=== PATIENT | male | born 1945 | race Caucasian/White ===

== ENCOUNTER 2019-11-05 13:34 | Emergency (ER) | payer OTHER ==
--- NOTE | 2019-11-05 14:38 | EDM.PDOC ---
ED HPI GENERAL MEDICAL PROBLEM - General Chief Complaint: General Stated Complaint: "blood pressure problem", right knee pain Time Seen by Provider: 11/05/19 14:03 Source of Information: Reports: Patient History Limitations: Reports: No Limitations - History of Present Illness INITIAL COMMENTS - FREE TEXT/NARRATIVE: Dave is a 74 yo male who presents to the ED via private vehicle stating he needs to see a doctor for multiple complaints. States he is new to the area as he recently moved here and admits he [facility]. He states [facility] today and they wanted him to come in to have his blood pressure checked. He typically will get a headache when his blood pressure is elevated but he currently doesn't have one. Denies any chest pain or shortness of breath. He also states he fell about 3-4 weeks ago landing on his right knee and ended up having an x-ray done. States he has a knee replacement in the past and everything looked great. He states it continues to hurt on the inside of his knee but hasn't noticed any instability or laxity. Pain is currently a 6 out of 10 which has been fairly constant. States he is taking Tylenol for it as he doesn't take NSAIDs with history of stomach ulcers. Denies any worsening of symptoms today. Has hardware in the medial part of his right ankle that he feels needs to come out as it is tenting his skin. Right knee Pain Score (Numeric/FACES): 6 - Related Data Allergies Allergy/AdvReac Type Severity Reaction Status Date / Time No Known Allergies Allergy Verified 11/05/19 13:49 Home Meds: Home Meds . [Unable to Verify Home Med List] 11/05/19 [History] Past Medical History Cardiovascular History: Reports: Hypertension Gastrointestinal History: Reports: GI Bleed Genitourinary History: Reports: Prostate Disorder Psychiatric History: Reports: Depression - Past Surgical History Other Musculoskeletal Surgeries/Procedures:: back surgery x4, neck surgery, ankle surgery. history of broken ribs. surgery on both knees. Social & Family History - Tobacco Use Smoking Status *Q: Former Smoker Used Tobacco, but Quit: Yes Month/Year Tobacco Last Used: 1981 ED ROS GENERAL - Review of Systems Review Of Systems: Comprehensive ROS is negative, except as noted in HPI. ED EXAM, GENERAL - Physical Exam Exam: See Below Exam Limited By: No Limitations General Appearance: Alert, WD/WN, No Apparent Distress Throat/Mouth: Normal Voice, No Airway Compromise Head: Atraumatic, Normocephalic Neck: Normal Inspection Respiratory/Chest: No Respiratory Distress, Lungs Clear, Normal Breath Sounds Cardiovascular: Regular Rate, Rhythm, No Edema, No Murmur Extremities: Normal Inspection, Normal Range of Motion, Other (tenderness to medial aspect of right knee. Negative valgus and varus stretch.; No warmth to knee. Right ankle medial aspect does show hardware tenting. ). No: Pedal Edema , Joint Swelling, Mottled, Redness Neurological: Alert, Oriented, No Motor/Sensory Deficits Psychiatric: Normal Affect, Normal Mood Skin Exam: Warm, Dry, Intact, Normal Color, No Rash Course - Vital Signs Last Recorded V/S: Last Vital Signs Temp 98 F 11/05/19 13:41 Pulse 69 11/05/19 14:09 Resp 20 11/05/19 13:41 BP 137/75 11/05/19 14:09 Pulse Ox 95 11/05/19 13:41 - Orders/Labs/Meds Orders: Active Orders 24 hr Category Date Time Status BMP [BASIC METABOLIC PANEL,BMP] [CHEM] Stat Lab 11/05/19 13:59 Ordered CBC WITH AUTO DIFF [HEME] Stat Lab 11/05/19 13:59 Ordered Departure - Departure Time of Disposition: 14:41 Disposition: Home, Self-Care 01 Clinical Impression: Right medial knee pain, Vertigo Hypertension Qualifiers: Hypertension type: essential hypertension Qualified Code(s): I10 - Essential ( primary) hypertension Pain from implanted hardware Qualifiers: Encounter type: initial encounter Qualified Code(s): T85.848A - Pain due to other internal prosthetic devices, implants and grafts, initial encounter - Discharge Information Referrals: PCP,None [Primary Care Provider] - Additional Instructions: 1) [facility] with [facility] tomorrow as discussed with [facility]. 2) Blood pressure was normotensive today with repeat blood pressure 3) Recommend discussing physical therapy in regards to knee with [facility] tomorrow as well 4) Likely will need hardware removed which also recommend discussing with [facility] 5) Return to ED if any chest pain, shortness of breath, palpitations, uncontrolled blood pressure, etc... Sepsis Event Note - Evaluation Sepsis Screening Result: No Definite Risk - Focused Exam Vital Signs: Vital Signs Temp Pulse Resp BP Pulse Ox 11/05/19 14:09 69 137/75 11/05/19 13:41 98 F 69 20 137/97 H 95 Date Exam was Performed: 11/05/19 Time Exam was Performed: 14:32 - Problem List & Annotations (1) Hypertension SNOMED Code(s): 83323201 Code(s): I10 - ESSENTIAL (PRIMARY) HYPERTENSION Status: Acute Current Visit: Yes Qualifiers: Hypertension type: essential hypertension Qualified Code(s): I10 - Essential (primary) hypertension (2) Pain from implanted hardware SNOMED Code(s): 80103764, 50398343 Code(s): T85.848A - PAIN DUE TO OTHER INTERNAL PROSTH DEV/GRFT, INIT Status : Acute Current Visit: Yes Qualifiers: Encounter type: initial encounter Qualified Code(s): T85.848A - Pain due to other internal prosthetic devices, implants and grafts, initial encounter (3) Right medial knee pain SNOMED Code(s): 26546601 Code(s): M25.561 - PAIN IN RIGHT KNEE Status: Acute Current Visit: Yes (4) Vertigo SNOMED Code(s): 104673461 Code(s): R42 - DIZZINESS AND GIDDINESS Status: Acute Current Visit: Yes - My Orders Last 24 Hours: My Active Orders 11/05/19 13:59 BMP [BASIC METABOLIC PANEL,BMP] [CHEM] Stat CBC WITH AUTO DIFF [HEME] Stat - Assessment/Plan Last 24 Hours: My Active Orders 11/05/19 13:59 BMP [BASIC METABOLIC PANEL,BMP] [CHEM] Stat CBC WITH AUTO DIFF [HEME] Stat Plan: Discussed with [facility] he needs to review all [facility] concerns with the [facility]. Blood pressure repeated and normotensive. Overall, I do not feel there is anything else we can do from ED stand point. I did discuss having labs drawn today which he declined and wants to wait till tomorrow.
== END 2019-11-05 14:51 | disposition home or self-care (01) ==
LOC: CC.ED 13:34
DX: M25.561 Pain in right knee (principal); T84.84XA Pain due to internal orthopedic prosthetic devices, implants and grafts, initial encounter; R42 Dizziness and giddiness; I10 Essential (primary) hypertension; Z87.891 Personal history of nicotine dependence; Y79.2 Prosthetic and other implants, materials and accessory orthopedic devices associated with adverse incidents
CPT/HCPCS: 99283

== ENCOUNTER 2019-11-11 01:15 | Emergency (ER) | payer OTHER ==
--- NOTE | 2019-11-11 01:45 | EDM.PDOC ---
ED HPI GENERAL MEDICAL PROBLEM - General Chief Complaint: Back Pain or Injury Stated Complaint: back pain Time Seen by Provider: 11/11/19 01:35 Source of Information: Reports: Patient, EMS History Limitations: Reports: No Limitations - History of Present Illness INITIAL COMMENTS - FREE TEXT/NARRATIVE: Patient to the emergency department by EMS where he advised he was trying to open up soup earlier today and slipped and fell on the floor landing on his buttocks. The patient advises that he does have pain to his lower back. The patient does have a history of chronic lower back pain as well as advising that he has had several lumbar spine surgeries. The patient also advises that over the last 3 days he has been drinking pretty heavily and the alcohol increased tonight with the [employer] Bowl. The patient denies any mid back or upper back pain he denies any neck pain he denies hitting his head there is no loss of consciousness he denies any hip or pelvis pain he denies any upper or lower extremity pain he denies any other symptoms. The patient denies that he has been voiding since the accident this late evening. The patient has been up and ambulating without any problem as well. Onset: Today Duration: Hour(s): Location: Reports: Back Quality: Reports: Ache Severity: Moderate Improves with: Reports: None Worsens with: Reports: Movement Associated Symptoms: Reports: No Other Symptoms. Denies: Chest Pain, Nausea/ Vomiting, Shortness of Breath, Weakness Treatments CHEMISTRY QUALITY CONTROL TECHNICIAN: Reports: Acetaminophen lower back Pain Score (Numeric/FACES): 8 - Related Data Allergies Allergy/AdvReac Type Severity Reaction Status Date / Time No Known Allergies Allergy Verified 11/11/19 01:28 Home Meds: Home Meds Allopurinol [Zyloprim] 100 mg PO DAILY 11/11/19 [History] Aspirin [Halfprin] 81 mg PO DAILY 11/11/19 [History] Cetirizine HCl 10 mg PO DAILY 11/11/19 [History] Cyanocobalamin (Vitamin B-12) [B-12] 1,000 mcg PO DAILY 11/11/19 [History] Escitalopram Oxalate 20 mg PO DAILY 11/11/19 [History] Finasteride 5 mg PO DAILY 11/11/19 [History] Magnesium Oxide 420 mg PO BID 11/11/19 [History] Pantoprazole Sodium 40 mg PO DAILY 11/11/19 [History] Propranolol HCl [Propranolol] 5 mg PO BID 11/11/19 [History] Pyridoxine HCl [Vitamin B-6] 50 mg PO DAILY 11/11/19 [History] Thiamine HCl [B-1] 100 mg PO DAILY 11/11/19 [History] buPROPion HCL [Bupropion HCl Sr] 100 mg PO BID 11/11/19 [History] methocarbamoL [Robaxin] 500 mg PO TID 10 Days #30 tab 11/11/19 [Rx] traZODone HCl [Trazodone HCl] 150 mg PO BEDTIME 11/11/19 [History] Past Medical History Cardiovascular History: Reports: Hypertension Gastrointestinal History: Reports: GI Bleed Genitourinary History: Reports: Prostate Disorder Psychiatric History: Reports: Depression - Past Surgical History Other Musculoskeletal Surgeries/Procedures:: back surgery x4, neck surgery, ankle surgery. history of broken ribs. surgery on both knees. Social & Family History - Tobacco Use Smoking Status *Q: Never Smoker - Alcohol Use Days Per Week of Alcohol Use: 3 Number of Drinks Per Day: 6 Total Drinks Per Week: 18 Date of Last Drink: 11/11/19 Time of Last Drink: 00:00 - Recreational Drug Use Recreational Drug Use: No ED ROS GENERAL - Review of Systems Review Of Systems: See Below Constitutional: Reports: No Symptoms HEENT: Reports: No Symptoms Respiratory: Reports: No Symptoms. Denies: Shortness of Breath Cardiovascular: Reports: No Symptoms. Denies: Chest Pain GI/Abdominal: Reports: No Symptoms. Denies: Abdominal Pain, Nausea, Vomiting : Reports: No Symptoms Musculoskeletal: Reports: Back Pain. Denies: Neck Pain Skin: Reports: No Symptoms. Denies: Bruising, Rash, Erythema Neurological: Reports: No Symptoms, Other (The patient denies any numbness or tingling in back however he does have chronic numbness and tingling in his lower extremities secondary to neuropathy). Denies: Numbness, Tingling, Trouble Speaking, Difficulty Walking, Gait Disturbance Psychiatric: Reports: No Symptoms ED EXAM,LOWER BACK PAIN/INJURY - Physical Exam Exam: See Below Exam Limited By: No Limitations General Appearance: Alert, WD/WN, No Apparent Distress Ears: Normal External Exam Nose: Normal Inspection Throat/Mouth: Normal Inspection, Normal Voice, No Airway Compromise Head: Atraumatic, Normocephalic Neck: Normal Inspection, Supple, Non-Tender, Full Range of Motion Respiratory/Chest: No Respiratory Distress, Lungs Clear, Normal Breath Sounds, Chest Non-Tender Cardiovascular: Normal Peripheral Pulses, Regular Rate, Rhythm GI/Abdominal: Soft, Non-Tender Back Exam: Normal Inspection, Full Range of Motion, Vertebral Tenderness (Over the lumbar spine with palpation and across the lower back) Extremities: Normal Inspection, Normal Range of Motion, Non-Tender, Normal Capillary Refill Neurological: Alert, Normal Mood/Affect, Normal Gait, No Motor/Sensory Deficits (Normal motor sensory to his back however he does advise he has some numbness in his lower extremities more in his feet area when I was assessing his extremities. He advises that this is chronic neuropathy.), Oriented x 3 Psychiatric: Normal Affect, Normal Mood Skin Exam: Warm, Dry, Intact, Normal Color Course - Vital Signs Text/Narrative:: The patient was evaluated in the emergency department x-ray of the lumbar spine was obtained and does not show any acute pathology. The hardware does appear to be intact. The patient will be discharged with Robaxin 500 mg 3 times a day for 10 days. The patient will be advised to try to stop drinking and follow-up with the family doctor this week if symptoms persist or any other problems. If worse or problems he is also to return to emergency department. Last Recorded V/S: Last Vital Signs Temp 37.3 C 11/11/19 01:22 Pulse 68 11/11/19 01:22 Resp 18 11/11/19 01:22 BP 129/82 11/11/19 01:22 Pulse Ox 94 L 11/11/19 01:22 - Orders/Labs/Meds Orders: Active Orders 24 hr Category Date Time Status Lumbar Spine 2 or 3V [CR] Stat Exams 11/11/19 01:38 Ordered Departure - Departure Time of Disposition: 02:06 Disposition: Home, Self-Care 01 Condition: Good Clinical Impression: Fall, Lumbar spine pain - Discharge Information *PRESCRIPTION DRUG MONITORING PROGRAM REVIEWED*: Not Applicable *COPY OF PRESCRIPTION DRUG MONITORING REPORT IN PATIENT DELIA: Not Applicable Prescriptions: methocarbamoL [Robaxin] 500 mg PO TID 10 Days #30 tab Instructions: Muscle Strain, [id number] Forms: ED Department Discharge Additional Instructions: Rest Try to stop drinking alcohol Robaxin 500 mg 3 times a day for 10 days Follow-up in the clinic this week as already scheduled Return to the emergency department as needed Sepsis Event Note - Evaluation Sepsis Screening Result: No Definite Risk - Focused Exam Vital Signs: Vital Signs Temp Pulse Resp BP Pulse Ox 11/11/19 01:22 37.3 C 68 18 129/82 94 L Date Exam was Performed: 11/11/19 Time Exam was Performed: 02:04 - Problem List & Annotations (1) Fall SNOMED Code(s): 7723207, 684492354 Code(s): W19.XXXA - UNSPECIFIED FALL, INITIAL ENCOUNTER Status: Acute Priority: Medium Current Visit: Yes Qualifiers: Encounter type: initial encounter Qualified Code(s): W19.XXXA - Unspecified fall, initial encounter (2) Lumbar spine pain SNOMED Code(s): 434639910 Code(s): M54.5 - LOW BACK PAIN Status: Acute Priority: Medium Current Visit: Yes - Problem List Review Problem List Initiated/Reviewed/Updated: Yes - My Orders Last 24 Hours: My Active Orders 11/11/19 01:38 Lumbar Spine 2 or 3V [CR] Stat - Assessment/Plan Last 24 Hours: My Active Orders 11/11/19 01:38 Lumbar Spine 2 or 3V [CR] Stat Plan: As above
== END 2019-11-11 02:29 | disposition home or self-care (01) ==
LOC: CC.ED 01:15
DX: M54.5 Low back pain (principal); I10 Essential (primary) hypertension; F32.9 Major depressive disorder, single episode, unspecified; Z79.899 Other long term (current) drug therapy; Z79.82 Long term (current) use of aspirin; W01.0XXA Fall on same level from slipping, tripping and stumbling without subsequent striking against object, initial encounter; Y93.89 Activity, other specified
CPT/HCPCS: 72100; 99283; 99284-25

== ENCOUNTER 2019-12-14 21:08 | Emergency (ER) | payer OTHER ==
[2019-12-14] MEDS ORDERED: MVI, Adult with Vitamin K 10 ML, Folic Acid 1 MG, Thiamine 100 MG, Magnesium Sulfate 2 ... IV ONE ×5 (21:36)
[2019-12-14] MEDS ORDERED: LORazepam 2 MG/ML Syringe IVPUSH ONE (21:36)
--- NOTE | 2019-12-14 21:42 | EDM.PDOC ---
ED HPI GENERAL MEDICAL PROBLEM - General Chief Complaint: General Stated Complaint: BLOOD PRESSURE PROBLEM Time Seen by Provider: 12/14/19 21:32 Source of Information: Reports: Patient History Limitations: Reports: No Limitations - History of Present Illness INITIAL COMMENTS - FREE TEXT/NARRATIVE: This patient is a 74 year old male that presents to the ER. Patient reports that this morning he began to have lightheadedness. The patient reports that he also took his BP at home this evening and it was high. He reports it was 170s over 110s. Patient reports that he has also had a headache since this morning. Patient reports that he normally does drink beer anywhere from 6 pack to 12 pack a day. Patient reports though he binge drinks occasionally and did last night. Patient reports he drank "a lot' of vodka last night. Patient reports he did not drink today. Patient reports this evening he has been a little shaky because he has not drank today. Patient is fully alert and oriented. No unilateral weaknesses. Patient reports he has a chronic issue with his HTN. Patient reports he takes medication for his HTN. Onset: Today Onset Date: 12/14/19 Onset Time: 11:00 Duration: Hour(s): Location: Reports: Head Quality: Reports: Dull Severity: Moderate Improves with: Reports: None Worsens with: Reports: None Associated Symptoms: Reports: Headaches. Denies: Confusion, Chest Pain, Cough, cough w sputum, Diaphoresis, Fever/Chills, Loss of Appetite, Malaise, Nausea/ Vomiting, Rash, Seizure, Shortness of Breath, Syncope, Weakness - Related Data Allergies Allergy/AdvReac Type Severity Reaction Status Date / Time No Known Allergies Allergy Verified 12/14/19 21:11 Home Meds: Home Meds Allopurinol [Zyloprim] 100 mg PO DAILY 11/11/19 [History] Aspirin [Halfprin] 81 mg PO DAILY 11/11/19 [History] Cetirizine HCl 10 mg PO DAILY 11/11/19 [History] Cyanocobalamin (Vitamin B-12) [B-12] 1,000 mcg PO DAILY 11/11/19 [History] Escitalopram Oxalate 20 mg PO DAILY 11/11/19 [History] Finasteride 5 mg PO DAILY 11/11/19 [History] Magnesium Oxide 420 mg PO BID 11/11/19 [History] Pantoprazole Sodium 40 mg PO DAILY 11/11/19 [History] Propranolol HCl [Propranolol] 5 mg PO BID 11/11/19 [History] Pyridoxine HCl [Vitamin B-6] 50 mg PO DAILY 11/11/19 [History] Thiamine HCl [B-1] 100 mg PO DAILY 11/11/19 [History] buPROPion HCL [Bupropion HCl Sr] 100 mg PO BID 11/11/19 [History] methocarbamoL [Robaxin] 500 mg PO TID 10 Days #30 tab 11/11/19 [Rx] traZODone HCl [Trazodone HCl] 150 mg PO BEDTIME 11/11/19 [History] Past Medical History Cardiovascular History: Reports: Hypertension Gastrointestinal History: Reports: GI Bleed Genitourinary History: Reports: Prostate Disorder Neurological History: Reports: Neuropathy, Peripheral Psychiatric History: Reports: Depression - Past Surgical History Other Musculoskeletal Surgeries/Procedures:: back surgery x4, neck surgery, ankle surgery. history of broken ribs. surgery on both knees. Social & Family History - Tobacco Use Smoking Status *Q: Former Smoker Used Tobacco, but Quit: Yes Month/Year Tobacco Last Used: 1981 ED ROS GENERAL - Review of Systems Review Of Systems: See Below Constitutional: Reports: No Symptoms HEENT: Reports: No Symptoms Respiratory: Reports: No Symptoms Cardiovascular: Reports: Blood Pressure Problem, Lightheadedness. Denies: Chest Pain, Dyspnea on Exertion, Edema, Palpitations, Syncope Endocrine: Reports: No Symptoms GI/Abdominal: Reports: No Symptoms. Denies: Abdominal Pain, Nausea, Vomiting : Reports: No Symptoms Musculoskeletal: Reports: No Symptoms Skin: Reports: No Symptoms Neurological: Reports: Dizziness, Headache, Tremors. Denies: Numbness, Pre- Existing Deficit, Seizure, Syncope, Tingling, Trouble Speaking, Difficulty Walking, Weakness, Change in Speech, Gait Disturbance Psychiatric: Reports: No Symptoms Hematologic/Lymphatic: Reports: No Symptoms Immunologic: Reports: No Symptoms ED EXAM, GENERAL - Physical Exam Exam: See Below Exam Limited By: No Limitations General Appearance: Alert, WD/WN, No Apparent Distress Eye Exam: Bilateral Eye: EOMI, Normal Inspection, PERRL Ears: Normal External Exam, Normal Canal, Hearing Grossly Normal, Normal TMs Ear Exam: Bilateral Ear: Auricle Normal, Canal Normal, TM normal Nose: Normal Inspection, Normal Mucosa, No Blood Throat/Mouth: Normal Inspection, Normal Lips, Normal Teeth, Normal Gums, Normal Oropharynx, Normal Voice, No Airway Compromise Head: Atraumatic, Normocephalic Neck: Normal Inspection, Supple, Non-Tender, Full Range of Motion Respiratory/Chest: No Respiratory Distress, Lungs Clear, Normal Breath Sounds, No Accessory Muscle Use Cardiovascular: Normal Peripheral Pulses, Regular Rate, Rhythm, No Edema, No Gallop, No JVD, No Murmur, No Rub Peripheral Pulses: 2+: Carotid (L), Carotid (R), Radial (L), Radial (R), Posterior Tibial (L), Posterior Tibial (R) GI/Abdominal: Soft, Non-Tender Back Exam: Normal Inspection, Full Range of Motion Extremities: Normal Inspection, Normal Range of Motion, Non-Tender, No Pedal Edema, Normal Capillary Refill Neurological: Alert, Oriented, CN II-XII Intact, Normal Cognition, Normal Gait, No Motor/Sensory Deficits, Other (mild tremors hands bilateral.). No: Inattentive, Confused, Disoriented, Slow to Respond, Unresponsive, Memory Loss Recent Events, Abnormal Gait, Sensory/Motor Deficit Psychiatric: Normal Affect, Normal Mood Skin Exam: Warm, Dry, Intact, Normal Color, No Rash Lymphatic: No Adenopathy Course - Vital Signs Last Recorded V/S: Last Vital Signs Temp 97.8 F 12/14/19 21:11 Pulse 56 L 12/14/19 23:26 Resp 18 12/14/19 21:11 BP 186/108 H 12/14/19 23:26 Pulse Ox 95 12/14/19 23:26 - Orders/Labs/Meds Orders: Active Orders 24 hr Category Date Time Status Cardiac Monitoring [RC] . DIRECTED Care 12/14/19 21:36 Active Chest 2V [CR] Stat Exams 12/14/19 21:32 Taken Head wo Cont [CT] Stat Exams 12/14/19 21:32 Taken Labs: Laboratory Tests 12/14/19 12/14/19 Range/Units 21:35 21:35 WBC 6.3 (5.0-10.0) 10^3/uL RBC 5.69 (4.50-6.00) 10^6/uL Hgb 17.0 (14.0-18.0) g/dL Hct 49.5 (40.0-54.0) % MCV 87.0 (82.0-94.0) fL MCH 29.9 (27.0-32.0) pg MCHC 34.3 (33.0-38.0) g/dL RDW Coeff of Blayne 15.4 H (11.0-15.0) % Plt Count 156 (150-400) 10^3/uL Neut % (Auto) 71.7 (35-85) % Lymph % (Auto) 20.4 (10-55) % [place] % (Auto) 6.8 (0-16) % Eos % (Auto) 0.5 (0-5) % Baso % (Auto) 0.6 (0-3) % Neut # (Auto) 4.50 (1.80-7.00) 10^3/uL Lymph # (Auto) 1.28 (1.00-4.80) 10^3/uL [place] # (Auto) 0.43 (0.00-0.80) 10^3/uL Eos # (Auto) 0.03 (0.00-0.45) 10^3/uL Baso # (Auto) 0.04 10^3/uL Sodium 143 (136-145) mEq/L Potassium 3.9 (3.5-5.0) mEq/L Chloride 103 (98-106) mEq/L Carbon Dioxide 27 (21-32) mmol/L BUN 5 L (7-18) mg/dL Creatinine 0.8 (0.7-1.3) mg/dL Est Cr Clr Drug Dosing 97.04 mL/min Estimated GFR (MDRD) > 60 (>=60) mL/min Glucose 97 (75-99) mg/dL Calcium 9.2 (8.4-10.1) mg/dL Total Bilirubin 0.7 (0.0-1.0) mg/dL AST 30 (15-37) U/L ALT 24 (12-78) U/L Alkaline Phosphatase 63 (46-116) U/L Lactate Dehydrogenase 180 (100-190) U/L Creatine Kinase 83 (35-232) U/L Troponin I 0.037 (0.00-0.06) ng/mL Total Protein 7.3 (6.4-8.2) g/dL Albumin 3.4 (3.4-5.0) g/dL Ethyl Alcohol 53 H (0-3) mg/dL Meds: Medications Discontinued Medications Generic Name Dose Route Start Last Admin Trade Name Jeanmarie PRN Reason Stop Dose Admin Multivitamins/Minerals 10 ml/ 1,015.2 mls @ 1,000 mls/hr 12/14/19 21:36 12/13 21:45 Folic Acid 1 mg/ Thiamine HCl IV 12/14/19 22:36 1,000 mls/hr 100 mg/ Magnesium Sulfate 2 gm ONETIME ONE Administration / Sodium Chloride Labetalol HCl 20 mg 12/14/19 22:31 12/14/19 22:51 Normodyne IVPUSH 12/14/19 22:32 Not Given ONETIME ONE Protocol Lorazepam 1 mg 12/14/19 21:36 12/14/19 21:40 Ativan IVPUSH 12/14/19 21:37 1 mg ONETIME ONE Administration - Radiology Interpretation Free Text/Narrative:: CXR: No infiltrates. Head CT: No density abnormalities in the brain. No intracranial mass effect of acute hemorrhage. CT Results Date: 12/14/19 CT Results Time: 10:27 - Re-Assessments/Exams Free Text/Narrative Re-Assessment/Exam: 12/14/19 23:43 This patient reports his lightheadedness has resolved after banana bag. He reports his tremors are resolved after the Ativan. Patient reports after the banana bag his headache has resolved completely. The patient is currently asymptomatic. He denies any chest pain or shortness of breath or unilateral weaknesses. He is ambulatory without issue or gait ataxia. All imaging and labs are not acute. Unremarkable. The patient is HTN, 186/108. Patient is not in HTN emergency as his BP is not greater than 220/120 and he is no longer experiencing any symptoms. Patient has chronic HTN. Patient does report he has had high BP like that pretty regularly. He reports [facility] to [facility] and [facility] and just [facility] and had [facility] this [facility]. [facility]. I will discharge this patient home to f/u with his pcp. Patient is educated when to return to the ER. Patient is educated about his drinking and to stop as well. Patient states "yeah I know better." Departure - Departure Time of Disposition: 23:36 Disposition: Home, Self-Care 01 Condition: Fair Clinical Impression: Lightheaded Hypertension Qualifiers: Hypertension type: essential hypertension Qualified Code(s): I10 - Essential ( primary) hypertension Alcohol withdrawal Qualifiers: Complication of substance-induced condition: uncomplicated Qualified Code(s): F10.230 - Alcohol dependence with withdrawal, uncomplicated - Discharge Information *PRESCRIPTION DRUG MONITORING PROGRAM REVIEWED*: Not Applicable *COPY OF PRESCRIPTION DRUG MONITORING REPORT IN PATIENT DELIA: Not Applicable Instructions: Alcohol Use Disorder, Hypertension, [id number], Alcohol Abuse and Nutrition, Alcohol Withdrawal Syndrome, [id number] Referrals: PCP,None [Primary Care Provider] - Forms: ED Department Discharge Additional Instructions: Followup with your primary care provider Followup with your primary care provider about your continued high blood pressure Return to the ER for worsening of condition or any emergent concerns such as stroke, chest pain, shortness of breath or any emergent concerns Increase fluids Stop drinking alcohol Must have a ride home from the ER today. You had Ativan. Sepsis Event Note - Evaluation Sepsis Screening Result: No Definite Risk - Focused Exam Vital Signs: Vital Signs Temp Pulse Resp BP Pulse Ox 12/14/19 23:26 56 L 186/108 H 95 12/14/19 22:06 59 L 190/115 H 12/14/19 21:25 63 199/130 H 12/14/19 21:11 97.8 F 63 18 185/113 H 95 Date Exam was Performed: 12/15/19 Time Exam was Performed: 00:12 - My Orders Last 24 Hours: My Active Orders 12/14/19 21:32 Chest 2V [CR] Stat Head wo Cont [CT] Stat 12/14/19 21:36 Cardiac Monitoring [RC] . DIRECTED - Assessment/Plan Last 24 Hours: My Active Orders 12/14/19 21:32 Chest 2V [CR] Stat Head wo Cont [CT] Stat 12/14/19 21:36 Cardiac Monitoring [RC] . DIRECTED Plan: PLEASE SEE RN NOTE FOR PFSH.
[2019-12-14 22:04] LABS: CHLORIDE,CL 103 mEq/L (98-106); SODIUM,NA 143 mEq/L (136-145)
[2019-12-14] MEDS ORDERED: Labetalol 100 MG/20 ML MDV IVPUSH ONE (22:31)
== END 2019-12-14 23:47 | disposition home or self-care (01) ==
LOC: CC.ED 21:08
DX: F10.230 Alcohol dependence with withdrawal, uncomplicated (principal); I10 Essential (primary) hypertension; G62.9 Polyneuropathy, unspecified; F32.9 Major depressive disorder, single episode, unspecified; Z79.899 Other long term (current) drug therapy; Z79.82 Long term (current) use of aspirin; Z87.891 Personal history of nicotine dependence
CPT/HCPCS: 36415; 70450; 71046; 80053; 80307; 82550; 83615; 84484; 85025; 93005; 96365; 96366; 96375; 99284; J2060; J3411; J3475; J7030; 93010; J3490

== ENCOUNTER 2021-04-16 15:19 | Emergency (ER) | payer OTHER ==
[2021-04-16 15:42] LABS: CHLORIDE,CL 102 mEq/L (98-106); SODIUM,NA 138 mEq/L (136-145)
[2021-04-16] MEDS: Aspirin 81 MG Tab.Chew PO ONE (15:45)
--- NOTE | 2021-04-16 16:14 | EDM.PDOC ---
ED HPI GENERAL MEDICAL PROBLEM - General Chief Complaint: General Stated Complaint: shoulder pain Time Seen by Provider: 04/16/21 16:00 Source of Information: Reports: Patient History Limitations: Reports: No Limitations - History of Present Illness INITIAL COMMENTS - FREE TEXT/NARRATIVE: This patient is a 75 year old male that presents to the ER. Patient reports having neck pain and mid upper back pain for years. He reports that he has had several surgeries for this. He reports he sees pain management in [place] for this. He reports its been worse the past 2 weeks with pain and weakness in bilateral extremities. He reports that he was seen by pain doctor 2 weeks ago and had MRI in [place]. He reports today is no different than when he was seen then. he reports he came to ER because he wanted to 100% sure it was not his heart causing the pain. He reports the pain is worse with moving his neck side to side and his arms upwards. Denies new injury. Denies numbness/tingling down extremities. Levi urinary/bowel incontinence or any saddle parathesia. Onset Date: 04/02/21 Duration: Week(s): (2), Chronic (years, but worse last 2 weeks), Getting Worse Location: Reports: Neck, Back Quality: Reports: Ache Severity: Moderate Improves with: Reports: Immobilization Worsens with: Reports: Movement Context: Reports: Lifting Associated Symptoms: Reports: No Other Symptoms. Denies: Confusion, Chest Pain, Cough, cough w sputum, Diaphoresis, Fever/Chills, Headaches, Loss of Appetite, Malaise, Nausea/Vomiting, Rash, Seizure, Shortness of Breath, Syncope, Weakness Left Shoulder Pain Score (Numeric/FACES): 4 - Related Data Allergies Allergy/AdvReac Type Severity Reaction Status Date / Time No Known Allergies Allergy Verified 04/16/21 15:35 Home Meds: Home Meds Aspirin [Halfprin] 81 mg PO DAILY 11/11/19 [History] Cetirizine HCl 10 mg PO DAILY 11/11/19 [History] Cyanocobalamin (Vitamin B-12) [B-12] 1,000 mcg PO DAILY 11/11/19 [History] Escitalopram Oxalate 20 mg PO DAILY 11/11/19 [History] Finasteride 5 mg PO DAILY 11/11/19 [History] Magnesium Oxide 420 mg PO BID 11/11/19 [History] Pantoprazole Sodium 40 mg PO DAILY 11/11/19 [History] Propranolol HCl [Propranolol] 5 mg PO BID 11/11/19 [History] Pyridoxine HCl [Vitamin B-6] 50 mg PO DAILY 11/11/19 [History] Thiamine HCl [B-1] 100 mg PO DAILY 11/11/19 [History] allopurinoL [Zyloprim] 100 mg PO DAILY 11/11/19 [History] buPROPion HCL [Bupropion HCl Sr] 100 mg PO BID 11/11/19 [History] methocarbamoL [Robaxin] 500 mg PO TID 10 Days #30 tab 11/11/19 [Rx] traZODone HCl [Trazodone HCl] 150 mg PO BEDTIME 11/11/19 [History] Past Medical History Cardiovascular History: Reports: Hypertension Gastrointestinal History: Reports: GI Bleed Genitourinary History: Reports: Prostate Disorder Neurological History: Reports: Neuropathy, Peripheral Psychiatric History: Reports: Depression - Past Surgical History Other Musculoskeletal Surgeries/Procedures:: back surgery x4, neck surgery, ankle surgery. history of broken ribs. surgery on both knees. Social & Family History - Tobacco Use Tobacco Use Status *Q: Never Tobacco User Second Hand Smoke Exposure: No - Caffeine Use Caffeine Use: Reports: None - Alcohol Use Number of Drinks Per Day: 2 - Recreational Drug Use Recreational Drug Use: No ED ROS GENERAL - Review of Systems Review Of Systems: See Below Constitutional: Reports: No Symptoms HEENT: Reports: No Symptoms Respiratory: Reports: No Symptoms Cardiovascular: Reports: No Symptoms. Denies: Chest Pain, Dyspnea on Exertion, Edema, Lightheadedness, Orthopnea, Palpitations, Syncope Endocrine: Reports: No Symptoms GI/Abdominal: Reports: No Symptoms. Denies: Abdominal Pain, Diarrhea, Nausea, Vomiting : Reports: No Symptoms. Denies: Incontinence Musculoskeletal: Reports: Neck Pain, Back Pain Skin: Reports: No Symptoms Neurological: Reports: No Symptoms. Denies: Confusion, Dizziness, Headache, Numbness, Paresthesia, Syncope, Tingling, Tremors, Trouble Speaking, Difficulty Walking, Weakness, Change in Speech, Gait Disturbance Psychiatric: Reports: No Symptoms Hematologic/Lymphatic: Reports: No Symptoms Immunologic: Reports: No Symptoms ED EXAM, GENERAL - Physical Exam Exam: See Below Exam Limited By: No Limitations General Appearance: Alert, WD/WN, No Apparent Distress Eye Exam: Bilateral Eye: Normal Inspection, PERRL Ears: Normal External Exam, Normal Canal, Hearing Grossly Normal, Normal TMs Ear Exam: Bilateral Ear: Auricle Normal, Canal Normal, TM normal Nose: Normal Inspection, Normal Mucosa, No Blood Throat/Mouth: Normal Inspection, Normal Lips, Normal Gums, Normal Oropharynx, Normal Voice Head: Atraumatic, Normocephalic Neck: Normal Inspection, Supple, Non-Tender, Tender Lateral. No: Full Range of Motion (uintact but with pain, makes pain worse. ), Limited Range of Motion Respiratory/Chest: No Respiratory Distress, Lungs Clear, Normal Breath Sounds, No Accessory Muscle Use, Chest Non-Tender Cardiovascular: Normal Peripheral Pulses, No Edema, No Gallop, No Murmur, No Rub, Bradycardia (56 one exam) Peripheral Pulses: 2+: Radial (L), Radial (R), Posterior Tibial (L), Posterior Tibial (R) GI/Abdominal: Soft, Non-Tender Back Exam: Normal Inspection, Full Range of Motion, Paraspinal Tenderness (mid upper), Other (ROM twisting and rotating of the back makes pain worse. ROM intact. ). No: Decreased Range of Motion, Muscle Spasm Extremities: Normal Inspection, Normal Range of Motion, Non-Tender, No Pedal Edema, Normal Capillary Refill, Other (neurovascular intact. ) Neurological: Alert, Oriented, CN II-XII Intact, Normal Cognition, Normal Gait, Normal Reflexes, No Motor/Sensory Deficits Psychiatric: Normal Affect, Normal Mood Skin Exam: Warm, Dry, Intact, Normal Color, No Rash Lymphatic: No Adenopathy #1 Interpretation EKG Date: 04/16/21 Time: 15:18 Rhythm: Other (Sinus [place]) Rate (Beats/Min): 58 [place]: Normal P-Wave: Present QRS: Normal ST-T: Normal QT: Normal Comparison: NA - No Prior EKG Course - Vital Signs Last Recorded V/S: Last Vital Signs Temp 98 F 04/16/21 15:30 Pulse 60 04/16/21 16:02 Resp 16 04/16/21 16:02 BP 148/91 H 04/16/21 16:02 Pulse Ox 92 L 04/16/21 16:02 - Orders/Labs/Meds Orders: Active Orders 24 hr Category Date Time Status Cardiac Monitoring [RC] . DIRECTED Care 04/16/21 14:48 Active Chest 2V [CR] Stat Exams 04/16/21 14:48 Taken Labs: Laboratory Tests 04/16/21 04/16/21 04/16/21 Range/Units 15:22 15:22 15:22 WBC 6.7 (4.0-11.0) 10^3/uL RBC 5.04 (4.50-6.00) x10^6/uL Hgb 15.4 (14.0-18.0) g/dL Hct 45.9 (42.0-52.0) % MCV 91.1 (83.0-97.0) fL MCH 30.6 (27.0-32.0) pg MCHC 33.6 (32.0-36.0) g/dL RDW Coeff of [place]ayne 14.6 (11.0-15.0) % Plt Count 106 L (150-400) 10^3/uL Immature Gran % (Auto) 0.1 (0.0-4.9) % Neut % (Auto) 57.3 (41-71) % Lymph % (Auto) 27.2 (24-44) % [place] % (Auto) 12.0 H (0-10) % Eos % (Auto) 3.3 (0-6) % Baso % (Auto) 0.1 (0-1) % Neut # (Auto) 3.83 (1.80-8.00) x10^3/uL Lymph # (Auto) 1.82 (0.60-5.00) 10^3/uL [place] # (Auto) 0.80 (0.00-1.50) 10^3/uL Eos # (Auto) 0.22 (0.00-1.50) 10^3/uL Baso # (Auto) 0.01 (0.00-0.50) 10^3/uL Immature Gran # (Auto) 0.01 (0.00-0.49) 10^3/uL PT 12.7 H (9.7-12.3) SEC INR 1.18 (0.92-1.18) Sodium 138 (136-145) mEq/L Potassium 4.4 (3.5-5.0) mEq/L Chloride 102 (98-106) mEq/L Carbon Dioxide 26 (21-32) mmol/L BUN 13 D (7-18) mg/dL Creatinine 0.9 (0.7-1.3) mg/dL Est Cr Clr Drug Dosing 84.99 mL/min Estimated GFR (MDRD) > 60 (>=60) mL/min Glucose 92 (75-99) mg/dL Calcium 9.3 (8.4-10.1) mg/dL Magnesium 1.5 L (1.8-2.4) mg/dL Total Bilirubin 0.8 (0.0-1.0) mg/dL AST 105 H (15-37) U/L ALT 101 H (12-78) U/L Alkaline Phosphatase 36 L (46-116) U/L Lactate Dehydrogenase 201 H (100-190) U/L Creatine Kinase 138 (35-232) U/L Troponin I < 0.017 (0.00-0.06) ng/mL Total Protein 7.4 (6.4-8.2) g/dL Albumin 3.6 (3.4-5.0) g/dL Lipase 105 (73-393) U/L Meds: Medications Discontinued Medications Generic Name Dose Route Start Last Admin Trade Name Freq PRN Reason Stop Dose Admin Aspirin 324 mg 04/16/21 15:30 04/16/21 15:45 Aspirin 81 Mg Tab.Chew PO 04/16/21 15:31 324 mg ONETIME ONE Administration - Radiology Interpretation Free Text/Narrative:: CXR: No acute findings - Re-Assessments/Exams Free Text/Narrative Re-Assessment/Exam: 04/16/21 16:14 Reviewed labs. Magnesium mildly low, patient reports he forgot to fill that medication, he will pick it up at pharmacy tomorrow. He takes at home. Liver enzymes mildly elevated, patient reports chronic, he reports he drinks alcohol. Departure - Departure Time of Disposition: 16:09 Disposition: Home, Self-Care 01 Condition: Good Clinical Impression: Chronic neck pain - Discharge Information *PRESCRIPTION DRUG MONITORING PROGRAM REVIEWED*: Not Applicable *COPY OF PRESCRIPTION DRUG MONITORING REPORT IN PATIENT DELIA: Not Applicable Instructions: Chronic Pain, Adult Additional Instructions: Followup with your pain management provider Followup with your primary care provider Return to the ER for worsening of condition or any emergent concerns Sepsis Event Note (ED) - Evaluation Sepsis Screening Result: No Definite Risk - Focused Exam Vital Signs: Vital Signs Temp Pulse Resp BP Pulse Ox 04/16/21 16:02 60 16 148/91 H 92 L 04/16/21 15:44 60 13 157/98 H 90 L 04/16/21 15:30 98 F 64 18 149/93 H 93 L 04/16/21 15:19 98.6 F 57 L 20 142/94 H 94 L - My Orders Last 24 Hours: My Active Orders 04/16/21 14:48 Cardiac Monitoring [RC] . DIRECTED Chest 2V [CR] Stat - Assessment/Plan Last 24 Hours: My Active Orders 04/16/21 14:48 Cardiac Monitoring [RC] . DIRECTED Chest 2V [CR] Stat Plan: PLEASE SEE RN NOTE FOR PFSH
== END 2021-04-16 16:18 | disposition home or self-care (01) ==
LOC: CC.ED 15:19
DX: G89.29 Other chronic pain (principal); M54.2 Cervicalgia; I10 Essential (primary) hypertension; Z79.82 Long term (current) use of aspirin; Z79.899 Other long term (current) drug therapy
CPT/HCPCS: 36415; 71046; 80053; 82550; 83615; 83690; 83735; 84484; 85025; 85610; 93005; 99284; A9270; 93010; 99283

== ENCOUNTER 2021-12-06 19:44 | Emergency (ER) | payer OTHER ==
[2021-12-06] MEDS: Labetalol 100 MG/20 ML MDV IVPUSH ONE (20:38)
== END 2021-12-06 21:43 | disposition home or self-care (01) ==
LOC: CC.ED 19:44
DX: I10 Essential (primary) hypertension (principal); Z88.8 Allergy status to other drugs, medicaments and biological substances; Z79.82 Long term (current) use of aspirin; Z79.899 Other long term (current) drug therapy
CPT/HCPCS: 93005; 96374; 99283-25; J3490

== ENCOUNTER 2022-02-19 23:06 | Emergency (ER) | payer OTHER ==
[2022-02-19] MEDS ORDERED: LORazepam 2 MG/ML Syringe IVPUSH ONE (23:40)
[2022-02-19] MEDS ORDERED: Sodium Chloride 0.9% 1,000 ML IV SCH (23:45)
[2022-02-19 23:58] LABS: CHLORIDE,CL 90 mEq/L (98-106); SODIUM,NA 129 mEq/L (136-145)
[2022-02-20] MEDS ORDERED: Thiamine 100 MG in Sodium Chloride 0.9% 100 ML IV ONE (00:05)
[2022-02-20] MEDS ORDERED: Magnesium Sulfate/Water 2 GM in Premix Bag 1 BAG IV ONE (00:05)
[2022-02-20] MEDS ORDERED: Take Home: LORazepam 0.5 MG Tab, 2 Tab Pack PO ONE ×2 (00:11→02:25)
[2022-02-20] MEDS ORDERED: Take Home: Ondansetron 4 MG Tab.DIS, 2 Tab Pack PO ONE (00:13)
[2022-02-20] MEDS ORDERED: Metoprolol Tartrate 5 MG/5 ML SDV IVPUSH ONE (00:17)
[2022-02-20] MEDS ORDERED: Ondansetron 4 MG/2 ML SDV IVPUSH PRN (01:28)
== END 2022-02-20 02:50 | disposition home or self-care (01) ==
LOC: CC.ED 23:06
DX: F10.230 Alcohol dependence with withdrawal, uncomplicated (principal); I10 Essential (primary) hypertension; E87.6 Hypokalemia; E87.1 Hypo-osmolality and hyponatremia; E83.42 Hypomagnesemia; Z88.8 Allergy status to other drugs, medicaments and biological substances; Z79.82 Long term (current) use of aspirin
CPT/HCPCS: 36415; 80053; 83735; 85025; 96365; 96366; 96367; 96375; 99284; 99284-25; A9270-GY; J2060; J2405; J3411; J3475; J3490; J7030

== ENCOUNTER 2022-05-05 14:19 | Emergency (ER) | payer OTHER | END 2022-05-05 15:00 | disposition home or self-care (01) | LOC: CC.ED 14:19 | DX: L03.031 Cellulitis of right toe (principal); I10 Essential (primary) hypertension; Z79.899 Other long term (current) drug therapy; Z79.82 Long term (current) use of aspirin | CPT/HCPCS: 99283 ==

== ENCOUNTER 2022-06-21 22:52 | Emergency (ER) | payer OTHER | END 2022-06-21 23:37 | disposition home or self-care (01) | LOC: CC.ED 22:52 | DX: D69.2 Other nonthrombocytopenic purpura (principal); F10.10 Alcohol abuse, uncomplicated; I10 Essential (primary) hypertension; Z88.8 Allergy status to other drugs, medicaments and biological substances; Z79.899 Other long term (current) drug therapy | CPT/HCPCS: 99283; 99284 ==

== ENCOUNTER 2022-07-30 03:23 | Emergency (ER) | payer OTHER ==
[2022-07-30] MEDS: Take Home: LORazepam 0.5 MG Tab, 2 Tab Pack PO ONE (03:59)
[2022-07-30] MEDS: Take Home: Ondansetron 4 MG Tab.DIS, 2 Tab Pack PO ONE (03:59)
== END 2022-07-30 04:28 | disposition home or self-care (01) ==
LOC: CC.ED 03:23
DX: I10 Essential (primary) hypertension (principal); F10.230 Alcohol dependence with withdrawal, uncomplicated; R11.0 Nausea; Z88.8 Allergy status to other drugs, medicaments and biological substances; Z79.82 Long term (current) use of aspirin; Z79.899 Other long term (current) drug therapy
CPT/HCPCS: 99283; 99284; A9270-GY

== ENCOUNTER 2023-01-27 23:24 | Emergency (ER) | payer OTHER ==
[2023-01-27] MEDS ORDERED: cloNIDine 0.1 MG Tab PO STA (23:51)
[2023-01-28] MEDS ORDERED: cloNIDine 0.1 MG Tab PO STA (00:41)
== END 2023-01-28 01:25 | disposition home or self-care (01) ==
LOC: CC.ED 23:24
DX: I10 Essential (primary) hypertension (principal); Z88.8 Allergy status to other drugs, medicaments and biological substances; Z79.82 Long term (current) use of aspirin; Z79.899 Other long term (current) drug therapy
CPT/HCPCS: 99284; A9270-GY

== ENCOUNTER 2023-03-27 13:19 | Emergency (ER) | payer MEDICARE, OTHER ==
[2023-03-27 13:49] LABS: BASOPHILS ABSOLUTE AUTO 0.02 10^3/uL (0.00-0.50); BASOPHILS PERCENT AUTO 0.3 % (0-1); EOSINOPHILS ABSOLUTE AUTO 0.29 10^3/uL (0.00-1.50); EOSINOPHILS PERCENT AUTO 5.1 % (0-6); HEMATOCRIT 40.9 % (42.0-52.0); HEMOGLOBIN 13.7 g/dL (14.0-18.0); LYMPHOCYTES ABSOLUTE AUTO 1.56 10^3/uL (0.60-5.00); LYMPHOCYTES PERCENT AUTO 27.3 % (24-44); MEAN CORPUSCULAR HEMOGLOBIN 29.1 pg (27.0-32.0); MEAN CORPUSCULAR HGB CONC 33.5 g/dL (32.0-36.0); MONOCYTES ABSOLUTE AUTO 0.47 10^3/uL (0.00-1.50); MONOCYTES PERCENT AUTO 8.2 % (0-10); NEUTROPHILS ABSOLUTE AUTO 3.38 x10^3/uL (1.80-8.00); NEUTROPHILS PERCENT AUTO 59.1 % (41-71); PLATELET COUNT,PLT 164 10^3/uL (150-400); WHITE BLOOD CELL COUNT,WBC 5.7 10^3/uL (4.0-11.0)
[2023-03-27 14:06] LABS: ALANINE AMINOTRANSFERASE,ALT 44 U/L (12-78); ALKALINE PHOSPHATASE 46 U/L (46-116); ASPARTATE AMNIOTRANSFERASE,AST 37 U/L (15-37); BILIRUBIN TOTAL 0.5 mg/dL (0.0-1.0); BLOOD UREA NITROGEN,BUN 8 mg/dL (7-18); CALCIUM 8.9 mg/dL (8.4-10.1); CARBON DIOXIDE,CO2 28 mmol/L (21-32); CHLORIDE,CL 104 mEq/L (98-106); CREATININE 0.8 mg/dL (0.7-1.3); EST CRCL DRUG DOSING (CG) 92.76 mL/min; GLUCOSE RANDOM 110 mg/dL (75-99); PROTEIN TOTAL,TP 6.6 g/dL (6.4-8.2); SODIUM,NA 140 mEq/L (136-145)
[2023-03-27 14:07] LABS: ESTIMATED GFR 92 mL/min (>=60)
[2023-03-27 14:08] LABS: C-REACTIVE PROTEIN < 0.2 mg/dL (0.2-0.8)
[2023-03-27] MEDS ORDERED: Iopamidol 755 Mg/ML 100 ML Bottle IVPUSH ONE (14:20)
[2023-03-27] MEDS ORDERED: Albuterol 0.083% 2.5 MG/3 ML Neb Soln NEB ONE (15:26)
== END 2023-03-27 16:04 | disposition home or self-care (01) ==
LOC: CC.ED 13:19
DX: J43.2 Centrilobular emphysema (principal); I10 Essential (primary) hypertension; Z79.899 Other long term (current) drug therapy; Z88.0 Allergy status to penicillin; Z88.8 Allergy status to other drugs, medicaments and biological substances; Z79.82 Long term (current) use of aspirin
CPT/HCPCS: 36415; 71260; 80053; 85025; 86140; 94640; 99284; 99285; J7613-GY; Q9967

== ENCOUNTER 2024-07-05 08:18 | Observation (INO) | payer OTHER ==
[2024-07-05] MEDS ORDERED: Sodium Chloride 0.9% 10 ML Syringe FLUSH PRN (08:45)
[2024-07-05 08:54] LABS: BASOPHILS ABSOLUTE AUTO 0.02 10^3/uL (0.00-0.50); BASOPHILS PERCENT AUTO 0.4 % (0-1); EOSINOPHILS ABSOLUTE AUTO 0.18 10^3/uL (0.00-1.50); HEMATOCRIT 39.3 % (42.0-52.0); HEMOGLOBIN 12.7 g/dL (14.0-18.0); IMMATURE GRAN ABSOLUTE AUTO 0.01 10^3/uL (0.00-0.49); IMMATURE GRAN PERCENT AUTO 0.2 % (0.0-4.9); LYMPHOCYTES ABSOLUTE AUTO 1.12 10^3/uL (0.60-5.00); LYMPHOCYTES PERCENT AUTO 24.7 % (24-44); MEAN CORPUSCULAR HEMOGLOBIN 28.4 pg (27.0-32.0); MEAN CORPUSCULAR HGB CONC 32.3 g/dL (32.0-36.0); MEAN CORPUSCULAR VOLUME 87.9 fL (83.0-97.0); MONOCYTES ABSOLUTE AUTO 0.63 10^3/uL (0.00-1.50); MONOCYTES PERCENT AUTO 13.9 % (0-10); NEUTROPHILS ABSOLUTE AUTO 2.57 x10^3/uL (1.80-8.00); NEUTROPHILS PERCENT AUTO 56.8 % (41-71); PLATELET COUNT,PLT 104 10^3/uL (150-400); RED BLOOD CELL COUNT 4.47 x10^6/uL (4.50-6.00); WHITE BLOOD CELL COUNT,WBC 4.5 10^3/uL (4.0-11.0)
[2024-07-05 09:09] LABS: ALBUMIN 3.8 g/dL (3.4-5.0); BILIRUBIN TOTAL 0.9 mg/dL (0.0-1.0); C-REACTIVE PROTEIN 1.52 mg/dL (<=0.50); CALCIUM 8.8 mg/dL (8.4-10.1); CREATININE 0.8 mg/dL (0.7-1.3); EST CRCL DRUG DOSING (CG) 91.16 mL/min; POTASSIUM,K 3.2 mEq/L (3.5-5.0); PROTEIN TOTAL,TP 7.2 g/dL (6.4-8.2)
[2024-07-05] MEDS: Sodium Chloride 0.9% 1,000 ML IV ONE (09:12)
[2024-07-05] MEDS: Folic Acid 1 MG, Multivitamins 1 TAB, Thiamine 100 MG, Magnesium Oxide 400 MG PO ONE (09:33)
[2024-07-05] MEDS: LORazepam 2 MG/ML SDV IVPUSH STA (09:37)
[2024-07-05 09:46] LABS: APPEARANCE,URINE CLEAR (CLEAR); BILIRUBIN,URINE NEGATIVE (NEGATIVE); COLOR,URINE YELLOW (YELLOW); GLUCOSE,URINE NEGATIVE (NEGATIVE); KETONES,URINE NEGATIVE (NEGATIVE); LEUKOCYTE ESTERASE,URINE NEGATIVE (NEGATIVE); NITRITE,URINE NEGATIVE (NEGATIVE); OCCULT BLOOD,URINE NEGATIVE (NEGATIVE); PH,URINE 7.5 (4.5-8.0); PROTEIN,URINE NEGATIVE (NEGATIVE); UROBILINOGEN,URINE 0.2 EU/dL (0.2-1.0)
[2024-07-05 09:49] LABS: AMPHETAMINES,URINE NEGATIVE (NEGATIVE); BARBITURATES,URINE NEGATIVE (NEGATIVE); BENZODIAZEPINE,URINE NEGATIVE (NEGATIVE); MDMA (ECSTASY), URINE NEGATIVE (NEGATIVE); METHADONE,URINE NEGATIVE (NEGATIVE); METHAMPHETAMINES,URINE NEGATIVE (NEGATIVE); OPIATES,URINE NEGATIVE (NEGATIVE); OXYCODONE,URINE NEGATIVE (NEGATIVE); PHENCYCLIDINE,URINE NEGATIVE (NEGATIVE); TCA,URINE NEGATIVE (NEGATIVE)
[2024-07-05] MEDS ORDERED: Propranolol 10 MG Tab PO PRN (09:51)
[2024-07-05] MEDS: Acetaminophen 500 MG Tab PO ONE (09:57)
[2024-07-05] MEDS ORDERED: Docusate Sodium 100 MG Cap PO PRN (10:22)
[2024-07-05] MEDS ORDERED: Ondansetron 4 MG Tab.DIS PO PRN (10:22)
[2024-07-05] MEDS ORDERED: Ondansetron 4 MG/2 ML SDV IV PRN (10:22)
[2024-07-05] MEDS: Potassium Chloride 20 MEQ Tab.ER PO ONE (10:25)
[2024-07-05] MEDS: Sodium Chloride 0.9% 1,000 ML IV SCH (10:29)
[2024-07-05] MEDS: Sodium Chloride 0.9% 1,000 ML ONE (11:27)
[2024-07-05] MEDS: Gabapentin 300 MG Cap PO SCH (13:44)
[2024-07-05] MEDS: Acetaminophen 500 MG Tab PO SCH (13:45)
[2024-07-05] MEDS: LORazepam 0.5 MG Tab PO PRN (13:52)
[2024-07-05] MEDS: Methocarbamol 500 MG Tab PO SCH (14:01)
[2024-07-05] MEDS ORDERED: Cyclobenzaprine 10 MG Tab PO PRN (16:12)
[2024-07-05] MEDS: Tamsulosin 0.4 MG Cap.ER PO SCH (19:38)
[2024-07-05] MEDS: atorvaSTATin 20 MG Tab PO SCH (19:38)
[2024-07-05] MEDS: Magnesium Oxide 400 MG Tab PO SCH (19:38)
[2024-07-05] MEDS: traZODone 50 MG Tab PO SCH (19:39)
[2024-07-05 21:42] LABS: AMMONIA 26 umol/L (6-47)
[2024-07-06] MEDS: Levothyroxine 50 MCG Tab PO SCH (07:06)
[2024-07-06] MEDS: Pantoprazole 40 MG Tab.CR PO SCH (07:06)
[2024-07-06] MEDS: Allopurinol 100 MG Tab PO SCH (07:45)
[2024-07-06] MEDS: Escitalopram 10 MG Tab PO SCH (07:45)
[2024-07-06] MEDS: Cholecalciferol (Vitamin D3) 25 MCG Tab PO SCH (07:46)
[2024-07-06] MEDS: Cyanocobalamin (Vitamin B12) 1,000 MCG Tab PO SCH (07:47)
[2024-07-06] MEDS: Folic Acid 1 MG Tab PO SCH (07:47)
[2024-07-06] MEDS: Vitamin B6-pyridOXINE 100 MG Tab PO SCH (07:50)
[2024-07-06] MEDS: Thiamine 100 MG Tab PO SCH (07:55)
[2024-07-06] MEDS: amLODIPine 10 MG Tab PO SCH (07:55)
[2024-07-06] MEDS: Finasteride 5 MG Tab PO SCH (07:55)
[2024-07-06 08:06] LABS: BASOPHILS ABSOLUTE AUTO 0.01 10^3/uL (0.00-0.50); BASOPHILS PERCENT AUTO 0.2 % (0-1); EOSINOPHILS ABSOLUTE AUTO 0.22 10^3/uL (0.00-1.50); EOSINOPHILS PERCENT AUTO 4.9 % (0-6); HEMATOCRIT 39.5 % (42.0-52.0); HEMOGLOBIN 13.2 g/dL (14.0-18.0); IMMATURE GRAN ABSOLUTE AUTO 0.01 10^3/uL (0.00-0.49); IMMATURE GRAN PERCENT AUTO 0.2 % (0.0-4.9); LYMPHOCYTES ABSOLUTE AUTO 1.02 10^3/uL (0.60-5.00); LYMPHOCYTES PERCENT AUTO 22.8 % (24-44); MEAN CORPUSCULAR HEMOGLOBIN 29.7 pg (27.0-32.0); MEAN CORPUSCULAR HGB CONC 33.4 g/dL (32.0-36.0); MONOCYTES ABSOLUTE AUTO 0.52 10^3/uL (0.00-1.50); MONOCYTES PERCENT AUTO 11.6 % (0-10); NEUTROPHILS PERCENT AUTO 60.3 % (41-71); PLATELET COUNT,PLT 125 10^3/uL (150-400); RED BLOOD CELL COUNT 4.44 x10^6/uL (4.50-6.00); WHITE BLOOD CELL COUNT,WBC 4.5 10^3/uL (4.0-11.0)
[2024-07-06 08:44] LABS: ALBUMIN 3.3 g/dL (3.4-5.0); BILIRUBIN TOTAL 0.8 mg/dL (0.0-1.0); C-REACTIVE PROTEIN 1.13 mg/dL (<=0.50); CALCIUM 8.6 mg/dL (8.4-10.1); CREATININE 0.8 mg/dL (0.7-1.3); EST CRCL DRUG DOSING (CG) 91.16 mL/min; PROTEIN TOTAL,TP 6.8 g/dL (6.4-8.2)
[2024-07-06 09:01] LABS: POTASSIUM,K 3.6 mEq/L (3.5-5.0)
== END 2024-07-06 10:25 | disposition home or self-care (01) ==
LOC: CC.ED 08:18 → CC.MS 09:42 → UNDOADMOB 09:48
PROVIDERS: ADMIT Nurse Practitioner Family; ATTEND Nurse Practitioner Family
DX: F10.930 Alcohol use, unspecified with withdrawal, uncomplicated (principal); G62.1 Alcoholic polyneuropathy; I10 Essential (primary) hypertension; Z79.899 Other long term (current) drug therapy
CPT/HCPCS: 36415; 80053; 80305-QW; 80307; 81003; 82140; 83690; 83735; 85025; 86140; 93005; 96374; 99285-25; A9270-GY; G0378; J2060; J7030

== ENCOUNTER 2024-08-02 13:05 | Emergency (ER) | payer OTHER ==
[2024-08-02 13:18] VITALS: BP 139/79; PULSE 88
== END 2024-08-02 13:50 | disposition home or self-care (01) ==
LOC: CC.ED 13:05
DX: L03.031 Cellulitis of right toe (principal); L03.032 Cellulitis of left toe; I10 Essential (primary) hypertension; E03.9 Hypothyroidism, unspecified; Z79.899 Other long term (current) drug therapy; Z88.0 Allergy status to penicillin; Z88.8 Allergy status to other drugs, medicaments and biological substances
CPT/HCPCS: 99283

== ENCOUNTER 2024-08-21 23:46 | Emergency (ER) | payer OTHER | END 2024-08-22 00:25 | disposition home or self-care (01) | LOC: CC.ED 23:46 | DX: S52.501A Unspecified fracture of the lower end of right radius, initial encounter for closed fracture (principal); I10 Essential (primary) hypertension; E03.9 Hypothyroidism, unspecified; Z88.0 Allergy status to penicillin; Z88.8 Allergy status to other drugs, medicaments and biological substances; Z79.890 Hormone replacement therapy; Z79.899 Other long term (current) drug therapy; W19.XXXA Unspecified fall, initial encounter; Y92.019 Unspecified place in single-family (private) house as the place of occurrence of the external cause | CPT/HCPCS: 73110-RT; 99283 ==

== ENCOUNTER 2024-09-06 17:18 | Emergency (ER) | payer OTHER | END 2024-09-06 17:40 | disposition home or self-care (01) | LOC: CC.ED 17:18 | DX: S60.212A Contusion of left wrist, initial encounter (principal); I10 Essential (primary) hypertension; Z79.899 Other long term (current) drug therapy; Z79.890 Hormone replacement therapy; Z88.8 Allergy status to other drugs, medicaments and biological substances; Z88.0 Allergy status to penicillin; X50.9XXA Other and unspecified overexertion or strenuous movements or postures, initial encounter | CPT/HCPCS: 99283 ==

== ENCOUNTER 2024-11-04 01:55 | Emergency (ER) | payer OTHER ==
[2024-11-04 02:10] LABS: BASOPHILS ABSOLUTE AUTO 0.04 10^3/uL (0.00-0.50); BASOPHILS PERCENT AUTO 0.5 % (0-1); EOSINOPHILS ABSOLUTE AUTO 0.39 10^3/uL (0.00-1.50); EOSINOPHILS PERCENT AUTO 4.9 % (0-6); HEMATOCRIT 42.6 % (42.0-52.0); HEMOGLOBIN 13.9 g/dL (14.0-18.0); IMMATURE GRAN ABSOLUTE AUTO 0.03 10^3/uL (0.00-0.49); IMMATURE GRAN PERCENT AUTO 0.4 % (0.0-4.9); LYMPHOCYTES ABSOLUTE AUTO 2.58 10^3/uL (0.60-5.00); LYMPHOCYTES PERCENT AUTO 32.5 % (24-44); MEAN CORPUSCULAR HEMOGLOBIN 28.7 pg (27.0-32.0); MEAN CORPUSCULAR HGB CONC 32.6 g/dL (32.0-36.0); MEAN CORPUSCULAR VOLUME 87.8 fL (83.0-97.0); MONOCYTES ABSOLUTE AUTO 0.65 10^3/uL (0.00-1.50); MONOCYTES PERCENT AUTO 8.2 % (0-10); NEUTROPHILS ABSOLUTE AUTO 4.25 x10^3/uL (1.80-8.00); NEUTROPHILS PERCENT AUTO 53.5 % (41-71); PLATELET COUNT,PLT 174 10^3/uL (150-400); RED BLOOD CELL COUNT 4.85 x10^6/uL (4.50-6.00); WHITE BLOOD CELL COUNT,WBC 7.9 10^3/uL (4.0-11.0)
[2024-11-04 02:11] LABS: APPEARANCE,URINE CLEAR (CLEAR); BILIRUBIN,URINE NEGATIVE (NEGATIVE); COLOR,URINE YELLOW (YELLOW); GLUCOSE,URINE NEGATIVE (NEGATIVE); KETONES,URINE NEGATIVE (NEGATIVE); LEUKOCYTE ESTERASE,URINE NEGATIVE (NEGATIVE); NITRITE,URINE NEGATIVE (NEGATIVE); OCCULT BLOOD,URINE NEGATIVE (NEGATIVE); PROTEIN,URINE NEGATIVE (NEGATIVE); UROBILINOGEN,URINE 0.2 EU/dL (0.2-1.0)
[2024-11-04] MEDS: HYDROmorphone 0.5 MG/0.5 ML Syringe IVPUSH ONE (02:18)
[2024-11-04 02:23] LABS: ALANINE AMINOTRANSFERASE,ALT 38 U/L (12-78); ALBUMIN 3.5 g/dL (3.4-5.0); ALKALINE PHOSPHATASE 51 U/L (46-116); ASPARTATE AMNIOTRANSFERASE,AST 36 U/L (15-37); BILIRUBIN TOTAL 0.5 mg/dL (0.0-1.0); BLOOD UREA NITROGEN,BUN 7 mg/dL (7-18); CARBON DIOXIDE,CO2 29 mmol/L (21-32); CHLORIDE,CL 102 mEq/L (98-106); CREATININE 0.9 mg/dL (0.7-1.3); GLUCOSE RANDOM 107 mg/dL (75-99); POTASSIUM,K 3.8 mEq/L (3.5-5.0); PROTEIN TOTAL,TP 7.6 g/dL (6.4-8.2); SODIUM,NA 142 mEq/L (136-145)
[2024-11-04 02:25] LABS: ESTIMATED GFR 88 mL/min (>=60)
[2024-11-04 02:26] LABS: C-REACTIVE PROTEIN < 0.50 mg/dL (<=0.50)
[2024-11-04] MEDS: fentaNYL 50 MCG/ML SDV IVPUSH ONE (02:45)
[2024-11-04] MEDS: Midazolam 1 MG/ML 2 ML SDV IVPUSH ONE (02:46)
[2024-11-04] MEDS: HYDROmorphone 0.5 MG/0.5 ML Syringe IVPUSH PRN ×2 (04:34→12:38)
[2024-11-04] MEDS: LORazepam 2 MG/ML SDV IVPUSH PRN (04:34)
== END 2024-11-04 12:42 ==
LOC: CC.ED 01:55 → SUPCPDRO 01:55 → CC.ED 12:42
DX: S72.401A Unspecified fracture of lower end of right femur, initial encounter for closed fracture (principal); I10 Essential (primary) hypertension; E03.9 Hypothyroidism, unspecified; Z96.659 Presence of unspecified artificial knee joint; Z88.0 Allergy status to penicillin; Z88.8 Allergy status to other drugs, medicaments and biological substances; Z79.890 Hormone replacement therapy; Z79.899 Other long term (current) drug therapy; W01.198A Fall on same level from slipping, tripping and stumbling with subsequent striking against other object, initial encounter; Y92.010 Kitchen of single-family (private) house as the place of occurrence of the external cause
CPT/HCPCS: 36415; 51702; 73700-RT; 80053; 81003; 85025; 86140; 96374; 96375; 96376; 99285-25; J2060; J2250; J3010; J3360

== ENCOUNTER 2025-02-08 10:35 | Emergency (ER) | payer OTHER | END 2025-02-08 12:24 | disposition home or self-care (01) | LOC: SUPCPDRO 10:35 → CC.ED 10:35 | DX: M25.461 Effusion, right knee (principal); I10 Essential (primary) hypertension; E03.9 Hypothyroidism, unspecified; Z88.1 Allergy status to other antibiotic agents; Z88.8 Allergy status to other drugs, medicaments and biological substances; Z79.899 Other long term (current) drug therapy; Z79.51 Long term (current) use of inhaled steroids; Z79.890 Hormone replacement therapy | CPT/HCPCS: 73562-RT; 99283 ==

== ENCOUNTER 2025-03-19 10:58 | Emergency (ER) | payer OTHER ==
[2025-03-19 11:26] LABS: BASOPHILS ABSOLUTE AUTO 0.05 10^3/uL (0.00-0.50); BASOPHILS PERCENT AUTO 0.5 % (0-1); EOSINOPHILS ABSOLUTE AUTO 0.14 10^3/uL (0.00-1.50); EOSINOPHILS PERCENT AUTO 1.5 % (0-6); HEMATOCRIT 45.4 % (42.0-52.0); HEMOGLOBIN 14.9 g/dL (14.0-18.0); IMMATURE GRAN ABSOLUTE AUTO 0.03 10^3/uL (0.00-0.49); IMMATURE GRAN PERCENT AUTO 0.3 % (0.0-4.9); LYMPHOCYTES ABSOLUTE AUTO 2.04 10^3/uL (0.60-5.00); LYMPHOCYTES PERCENT AUTO 21.9 % (24-44); MEAN CORPUSCULAR HGB CONC 32.8 g/dL (32.0-36.0); MEAN CORPUSCULAR VOLUME 85.3 fL (83.0-97.0); MONOCYTES ABSOLUTE AUTO 0.82 10^3/uL (0.00-1.50); MONOCYTES PERCENT AUTO 8.8 % (0-10); NEUTROPHILS ABSOLUTE AUTO 6.22 x10^3/uL (1.80-8.00); PLATELET COUNT,PLT 236 10^3/uL (150-400); RED BLOOD CELL COUNT 5.32 x10^6/uL (4.50-6.00); WHITE BLOOD CELL COUNT,WBC 9.3 10^3/uL (4.0-11.0)
[2025-03-19 11:43] LABS: ALANINE AMINOTRANSFERASE,ALT 137 U/L (12-78); ALBUMIN 3.9 g/dL (3.4-5.0); ALKALINE PHOSPHATASE 119 U/L (46-116); ASPARTATE AMNIOTRANSFERASE,AST 168 U/L (15-37); BILIRUBIN TOTAL 0.8 mg/dL (0.0-1.0); BLOOD UREA NITROGEN,BUN 12 mg/dL (7-18); C-REACTIVE PROTEIN < 0.50 mg/dL (<=0.50); CALCIUM 9.5 mg/dL (8.4-10.1); CARBON DIOXIDE,CO2 22 mmol/L (21-32); CHLORIDE,CL 100 mEq/L (98-106); CREATININE 1.1 mg/dL (0.7-1.3); EST CRCL DRUG DOSING (CG) 65.39 mL/min; ESTIMATED GFR 69 mL/min (>=60); ETHANOL BLOOD MEDICAL 24 mg/dL (0-3); GLUCOSE RANDOM 106 mg/dL (75-99); MAGNESIUM 1.4 mg/dL (1.8-2.4); POTASSIUM,K 3.2 mEq/L (3.5-5.0); PROTEIN TOTAL,TP 8.1 g/dL (6.4-8.2); SODIUM,NA 141 mEq/L (136-145)
[2025-03-19] MEDS: Sodium Chloride 0.9% 1,000 ML IV ONE (12:14)
[2025-03-19] MEDS: LORazepam 0.5 MG Tab PO ONE (12:15)
[2025-03-19] MEDS: Magnesium Sulfate 2 GM/50 mL 2 GM in Premix Bag 1 BAG IV ONE (12:27)
== END 2025-03-19 16:33 | disposition home or self-care (01) ==
LOC: CC.ED 10:58
DX: F10.230 Alcohol dependence with withdrawal, uncomplicated (principal); E87.6 Hypokalemia; E83.42 Hypomagnesemia; I10 Essential (primary) hypertension; E03.9 Hypothyroidism, unspecified; Z88.0 Allergy status to penicillin; Z79.899 Other long term (current) drug therapy; Z79.890 Hormone replacement therapy; Y90.9 Presence of alcohol in blood, level not specified
CPT/HCPCS: 36415; 80053; 80307; 83735; 85025; 86140; 96361; 96365; 99284; 99284-25; A9270-GY; J3475; J7030

== ENCOUNTER 2025-03-22 17:41 | Emergency (ER) | payer OTHER ==
[2025-03-22 18:40] LABS: BASOPHILS ABSOLUTE AUTO 0.04 10^3/uL (0.00-0.50); BASOPHILS PERCENT AUTO 0.5 % (0-1); EOSINOPHILS PERCENT AUTO 2.3 % (0-6); HEMATOCRIT 46.5 % (42.0-52.0); HEMOGLOBIN 14.5 g/dL (14.0-18.0); IMMATURE GRAN ABSOLUTE AUTO 0.03 10^3/uL (0.00-0.49); IMMATURE GRAN PERCENT AUTO 0.3 % (0.0-4.9); LYMPHOCYTES ABSOLUTE AUTO 2.16 10^3/uL (0.60-5.00); LYMPHOCYTES PERCENT AUTO 24.4 % (24-44); MEAN CORPUSCULAR HEMOGLOBIN 27.9 pg (27.0-32.0); MEAN CORPUSCULAR HGB CONC 31.2 g/dL (32.0-36.0); MEAN CORPUSCULAR VOLUME 89.6 fL (83.0-97.0); MONOCYTES ABSOLUTE AUTO 0.76 10^3/uL (0.00-1.50); MONOCYTES PERCENT AUTO 8.6 % (0-10); NEUTROPHILS ABSOLUTE AUTO 5.66 x10^3/uL (1.80-8.00); NEUTROPHILS PERCENT AUTO 63.9 % (41-71); PLATELET COUNT,PLT 187 10^3/uL (150-400); RED BLOOD CELL COUNT 5.19 x10^6/uL (4.50-6.00); WHITE BLOOD CELL COUNT,WBC 8.9 10^3/uL (4.0-11.0)
[2025-03-22 18:54] LABS: BILIRUBIN TOTAL 0.7 mg/dL (0.0-1.0); CALCIUM 9.6 mg/dL (8.4-10.1); CREATININE 0.9 mg/dL (0.7-1.3); EST CRCL DRUG DOSING (CG) 79.92 mL/min; POTASSIUM,K 3.5 mEq/L (3.5-5.0); PROTEIN TOTAL,TP 7.5 g/dL (6.4-8.2)
[2025-03-22 18:57] LABS: APPEARANCE,URINE CLEAR (CLEAR); BILIRUBIN,URINE NEGATIVE (NEGATIVE); COLOR,URINE YELLOW (YELLOW); GLUCOSE,URINE NEGATIVE (NEGATIVE); KETONES,URINE NEGATIVE (NEGATIVE); LEUKOCYTE ESTERASE,URINE NEGATIVE (NEGATIVE); NITRITE,URINE NEGATIVE (NEGATIVE); OCCULT BLOOD,URINE NEGATIVE (NEGATIVE); PROTEIN,URINE NEGATIVE (NEGATIVE); UROBILINOGEN,URINE 0.2 EU/dL (0.2-1.0)
[2025-03-22 18:59] LABS: MAGNESIUM 1.4 mg/dL (1.8-2.4)
[2025-03-22] MEDS: LORazepam 0.5 MG Tab PO ONE (19:23)
[2025-03-22] MEDS: Magnesium Sulfate 2 GM/50 mL 2 GM in Premix Bag 1 BAG IV ONE (19:24)
[2025-03-22] MEDS: Take Home: LORazepam 0.5 MG Tab, 2 Tab Pack PO ONE (20:37)
== END 2025-03-22 21:25 | disposition home or self-care (01) ==
LOC: CC.ED 17:41
DX: E83.42 Hypomagnesemia (principal); F10.230 Alcohol dependence with withdrawal, uncomplicated; I10 Essential (primary) hypertension; E03.9 Hypothyroidism, unspecified; Z88.0 Allergy status to penicillin; Z88.8 Allergy status to other drugs, medicaments and biological substances; Z79.899 Other long term (current) drug therapy; Z79.890 Hormone replacement therapy; Y90.9 Presence of alcohol in blood, level not specified
CPT/HCPCS: 36415; 80053; 81003; 83735; 84484; 85025; 96365; 96366; 99285; A9270; J3475; 93010; 99284

== ENCOUNTER 2025-04-08 13:04 | Observation (INO) | payer OTHER ==
[2025-04-08 13:41] LABS: BASOPHILS ABSOLUTE AUTO 0.05 10^3/uL (0.00-0.50); BASOPHILS PERCENT AUTO 0.4 % (0-1); EOSINOPHILS ABSOLUTE AUTO 0.18 10^3/uL (0.00-1.50); EOSINOPHILS PERCENT AUTO 1.6 % (0-6); IMMATURE GRAN ABSOLUTE AUTO 0.04 10^3/uL (0.00-0.49); IMMATURE GRAN PERCENT AUTO 0.4 % (0.0-4.9); LYMPHOCYTES ABSOLUTE AUTO 2.48 10^3/uL (0.60-5.00); LYMPHOCYTES PERCENT AUTO 22.2 % (24-44); MONOCYTES ABSOLUTE AUTO 0.74 10^3/uL (0.00-1.50); MONOCYTES PERCENT AUTO 6.6 % (0-10); NEUTROPHILS ABSOLUTE AUTO 7.68 x10^3/uL (1.80-8.00); NEUTROPHILS PERCENT AUTO 68.8 % (41-71); PLATELET COUNT,PLT 252 10^3/uL (150-400); RED BLOOD CELL COUNT 4.49 x10^6/uL (4.50-6.00); WHITE BLOOD CELL COUNT,WBC 11.2 10^3/uL (4.0-11.0)
[2025-04-08 13:57] LABS: ALANINE AMINOTRANSFERASE,ALT 36.0 U/L (12-78); ASPARTATE AMNIOTRANSFERASE,AST 21.0 U/L (15-37); BILIRUBIN TOTAL 0.4 mg/dL (0.0-1.0); BLOOD UREA NITROGEN,BUN 16.0 mg/dL (7-18); CARBON DIOXIDE,CO2 19.0 mmol/L (21-32); CHLORIDE,CL 100.0 mEq/L (98-106); CREATININE 1.6 mg/dL (0.7-1.3); EST CRCL DRUG DOSING (CG) 44.95 mL/min; GLUCOSE RANDOM 91.0 mg/dL (75-99); POTASSIUM,K 4.3 mEq/L (3.5-5.0); PROTEIN TOTAL,TP 7.0 g/dL (6.4-8.2); SODIUM,NA 136.0 mEq/L (136-145)
[2025-04-08 13:58] LABS: ESTIMATED GFR 44.0 mL/min (>=60)
[2025-04-08] MEDS ORDERED: Ondansetron 4 MG Tab.DIS PO PRN (14:43)
[2025-04-08] MEDS ORDERED: Ondansetron 4 MG/2 ML SDV IV PRN (14:43)
[2025-04-08 15:26] LABS: APPEARANCE,URINE CLEAR (CLEAR); GLUCOSE,URINE NEGATIVE (NEGATIVE); OCCULT BLOOD,URINE NEGATIVE (NEGATIVE)
[2025-04-09] MEDS: Vitamin B6-pyridOXINE 100 MG Tab PO SCH (07:27)
[2025-04-09] MEDS: Cyanocobalamin (Vitamin B12) 1,000 MCG Tab PO SCH (07:27)
[2025-04-09] MEDS: Cholecalciferol (Vitamin D3) 25 MCG Tab PO SCH (07:27)
[2025-04-09 07:30] LABS: BASOPHILS ABSOLUTE AUTO 0.03 10^3/uL (0.00-0.50); BASOPHILS PERCENT AUTO 0.5 % (0-1); EOSINOPHILS ABSOLUTE AUTO 0.42 10^3/uL (0.00-1.50); EOSINOPHILS PERCENT AUTO 6.8 % (0-6); IMMATURE GRAN ABSOLUTE AUTO 0.01 10^3/uL (0.00-0.49); IMMATURE GRAN PERCENT AUTO 0.2 % (0.0-4.9); LYMPHOCYTES ABSOLUTE AUTO 2.03 10^3/uL (0.60-5.00); LYMPHOCYTES PERCENT AUTO 33.0 % (24-44); MONOCYTES ABSOLUTE AUTO 0.47 10^3/uL (0.00-1.50); MONOCYTES PERCENT AUTO 7.6 % (0-10); NEUTROPHILS ABSOLUTE AUTO 3.19 x10^3/uL (1.80-8.00); NEUTROPHILS PERCENT AUTO 51.9 % (41-71); PLATELET COUNT,PLT 212 10^3/uL (150-400); RED BLOOD CELL COUNT 4.25 x10^6/uL (4.50-6.00); WHITE BLOOD CELL COUNT,WBC 6.2 10^3/uL (4.0-11.0)
[2025-04-09 08:02] LABS: ALANINE AMINOTRANSFERASE,ALT 31 U/L (12-78); ASPARTATE AMNIOTRANSFERASE,AST 18 U/L (15-37); BILIRUBIN TOTAL 0.5 mg/dL (0.0-1.0); BLOOD UREA NITROGEN,BUN 12 mg/dL (7-18); CARBON DIOXIDE,CO2 25 mmol/L (21-32); CHLORIDE,CL 108 mEq/L (98-106); CREATININE 0.8 mg/dL (0.7-1.3); EST CRCL DRUG DOSING (CG) 89.91 mL/min; GLUCOSE RANDOM 99 mg/dL (75-99); POTASSIUM,K 3.9 mEq/L (3.5-5.0); PROTEIN TOTAL,TP 6.4 g/dL (6.4-8.2); SODIUM,NA 141 mEq/L (136-145)
[2025-04-09 08:29] LABS: ESTIMATED GFR 91 mL/min (>=60)
== END 2025-04-09 13:15 | disposition home or self-care (01) ==
LOC: CC.ED 13:04 → CC.MS 14:15 → UNDOADMOB 14:15 → CC.MS 14:23
PROVIDERS: ADMIT Physician Assistant Medical; ATTEND Physician Assistant Medical
DX: I95.1 Orthostatic hypotension (principal); I10 Essential (primary) hypertension; E03.9 Hypothyroidism, unspecified; Z88.1 Allergy status to other antibiotic agents; Z88.8 Allergy status to other drugs, medicaments and biological substances; Z79.899 Other long term (current) drug therapy; Z79.890 Hormone replacement therapy
CPT/HCPCS: 36415; 70450; 80053; 81003; 83735; 84484; 85025; 86140; 93005; 96360; 99285-25; A9270-GY; J7030

== ENCOUNTER 2025-04-27 21:53 | Emergency (ER) | payer OTHER | END 2025-04-27 23:53 | disposition home or self-care (01) | LOC: CC.ED 21:53 | DX: S01.01XA Laceration without foreign body of scalp, initial encounter (principal); I10 Essential (primary) hypertension; E03.9 Hypothyroidism, unspecified; Z79.890 Hormone replacement therapy; Z79.899 Other long term (current) drug therapy; Z88.8 Allergy status to other drugs, medicaments and biological substances; W19.XXXA Unspecified fall, initial encounter | CPT/HCPCS: 12001; 70450; 99283 ==

== ENCOUNTER 2025-05-02 16:45 | Observation (INO) | payer OTHER ==
[2025-05-02 17:06] LABS: BASOPHILS ABSOLUTE AUTO 0.01 10^3/uL (0.00-0.50); BASOPHILS PERCENT AUTO 0.1 % (0-1); EOSINOPHILS ABSOLUTE AUTO 0.03 10^3/uL (0.00-1.50); EOSINOPHILS PERCENT AUTO 0.4 % (0-6); IMMATURE GRAN ABSOLUTE AUTO 0.01 10^3/uL (0.00-0.49); IMMATURE GRAN PERCENT AUTO 0.1 % (0.0-4.9); LYMPHOCYTES ABSOLUTE AUTO 2.13 10^3/uL (0.60-5.00); LYMPHOCYTES PERCENT AUTO 29.5 % (24-44); MONOCYTES ABSOLUTE AUTO 0.50 10^3/uL (0.00-1.50); MONOCYTES PERCENT AUTO 6.9 % (0-10); NEUTROPHILS ABSOLUTE AUTO 4.55 x10^3/uL (1.80-8.00); NEUTROPHILS PERCENT AUTO 63.0 % (41-71); PLATELET COUNT,PLT 160 10^3/uL (150-400); RED BLOOD CELL COUNT 5.02 x10^6/uL (4.50-6.00); WHITE BLOOD CELL COUNT,WBC 7.2 10^3/uL (4.0-11.0)
[2025-05-02 17:22] LABS: ALANINE AMINOTRANSFERASE,ALT 55 U/L (12-78); ASPARTATE AMNIOTRANSFERASE,AST 54 U/L (15-37); BILIRUBIN TOTAL 0.8 mg/dL (0.0-1.0); BLOOD UREA NITROGEN,BUN 12 mg/dL (7-18); CARBON DIOXIDE,CO2 17 mmol/L (21-32); CHLORIDE,CL 103 mEq/L (98-106); CREATININE 0.9 mg/dL (0.7-1.3); GLUCOSE RANDOM 113 mg/dL (75-99); POTASSIUM,K 4.0 mEq/L (3.5-5.0); PROTEIN TOTAL,TP 7.8 g/dL (6.4-8.2); SODIUM,NA 140 mEq/L (136-145)
[2025-05-02 17:23] LABS: ESTIMATED GFR 87 mL/min (>=60); INR 1.17 (0.92-1.18); PTT,PARTIAL THROMBOPLSTIN TIME 34.1 SEC (20.0-30.0)
[2025-05-02] MEDS: Magnesium Sulfate 2 GM/50 mL 2 GM in Premix Bag 1 BAG IV ONE (17:50)
[2025-05-02] MEDS ORDERED: Fluticasone NASAL Spray 16 GM Bottle *PT OWN MED NASBOTH PRN (18:26)
[2025-05-02] MEDS ORDERED: Ondansetron 4 MG/2 ML SDV IV PRN (18:26)
[2025-05-02] MEDS: Folic Acid 1 MG, Multivitamins 1 TAB, Thiamine 100 MG, Magnesium Oxide 400 MG PO SCH (19:03)
[2025-05-02] MEDS: Ondansetron 4 MG Tab.DIS PO PRN (19:58)
[2025-05-03 00:03] LABS: APPEARANCE,URINE CLEAR (CLEAR); GLUCOSE,URINE NEGATIVE (NEGATIVE); OCCULT BLOOD,URINE NEGATIVE (NEGATIVE)
[2025-05-03 00:09] LABS: EPITHELIAL CELLS,URINE NOT SEEN /HPF (NOT SEEN)
[2025-05-03 07:02] LABS: BLOOD UREA NITROGEN,BUN 11.0 mg/dL (7-18); CARBON DIOXIDE,CO2 27.0 mmol/L (21-32); CHLORIDE,CL 103.0 mEq/L (98-106); CREATININE 0.7 mg/dL (0.7-1.3); EST CRCL DRUG DOSING (CG) 98.29 mL/min; GLUCOSE RANDOM 113.0 mg/dL (75-99); POTASSIUM,K 4.1 mEq/L (3.5-5.0); SODIUM,NA 137.0 mEq/L (136-145)
[2025-05-03] MEDS: Cyanocobalamin (Vitamin B12) 1,000 MCG Tab PO SCH (07:17)
[2025-05-03 07:22] LABS: BASOPHILS ABSOLUTE AUTO 0.02 10^3/uL (0.00-0.50); BASOPHILS PERCENT AUTO 0.4 % (0-1); EOSINOPHILS ABSOLUTE AUTO 0.03 10^3/uL (0.00-1.50); EOSINOPHILS PERCENT AUTO 0.6 % (0-6); IMMATURE GRAN ABSOLUTE AUTO 0.02 10^3/uL (0.00-0.49); IMMATURE GRAN PERCENT AUTO 0.4 % (0.0-4.9); LYMPHOCYTES ABSOLUTE AUTO 1.39 10^3/uL (0.60-5.00); LYMPHOCYTES PERCENT AUTO 30.1 % (24-44); MONOCYTES ABSOLUTE AUTO 0.51 10^3/uL (0.00-1.50); MONOCYTES PERCENT AUTO 11.0 % (0-10); NEUTROPHILS ABSOLUTE AUTO 2.65 x10^3/uL (1.80-8.00); NEUTROPHILS PERCENT AUTO 57.5 % (41-71); PLATELET COUNT,PLT 110 10^3/uL (150-400); RED BLOOD CELL COUNT 4.48 x10^6/uL (4.50-6.00); WHITE BLOOD CELL COUNT,WBC 4.6 10^3/uL (4.0-11.0)
[2025-05-03 07:24] LABS: ESTIMATED GFR 94.0 mL/min (>=60)
[2025-05-03] MEDS ORDERED: NALTREXONE 50 MG PO SCH (08:30)
[2025-05-03] MEDS: CHOLECALCIFEROL 10 MCG PO SCH (08:31)
== END 2025-05-03 10:00 | disposition home or self-care (01) ==
LOC: CC.ED 16:45 → CC.MS 17:49 → UNDOADMOB 17:50 → CC.MS 17:50 → UNDOADMOB 18:08 → UNDODISOB 05-03 10:00
PROVIDERS: ADMIT Nurse Practitioner; ATTEND Nurse Practitioner
DX: R55 Syncope and collapse (principal); E83.42 Hypomagnesemia; F10.10 Alcohol abuse, uncomplicated; E03.9 Hypothyroidism, unspecified; I10 Essential (primary) hypertension; Z88.1 Allergy status to other antibiotic agents; Z88.8 Allergy status to other drugs, medicaments and biological substances; Z79.899 Other long term (current) drug therapy; Z79.890 Hormone replacement therapy
CPT/HCPCS: 36415; 70450; 71045; 80048; 80053; 80307; 81001; 83735; 84484; 85025; 85610; 85730; 93005; 96361; 96365; 96366; 99285; A9270; G0378; J3475; J7030

== ENCOUNTER 2025-07-15 12:39 | Emergency (ER) | payer OTHER ==
[2025-07-15 13:34] LABS: BASOPHILS ABSOLUTE AUTO 0.05 10^3/uL (0.00-0.50); BASOPHILS PERCENT AUTO 0.6 % (0-1); EOSINOPHILS ABSOLUTE AUTO 0.34 10^3/uL (0.00-1.50); EOSINOPHILS PERCENT AUTO 4.4 % (0-6); IMMATURE GRAN ABSOLUTE AUTO 0.16 10^3/uL (0.00-0.49); IMMATURE GRAN PERCENT AUTO 2.1 % (0.0-4.9); LYMPHOCYTES ABSOLUTE AUTO 1.70 10^3/uL (0.60-5.00); LYMPHOCYTES PERCENT AUTO 21.9 % (24-44); MONOCYTES ABSOLUTE AUTO 0.65 10^3/uL (0.00-1.50); MONOCYTES PERCENT AUTO 8.4 % (0-10); NEUTROPHILS ABSOLUTE AUTO 4.87 x10^3/uL (1.80-8.00); NEUTROPHILS PERCENT AUTO 62.6 % (41-71); PLATELET COUNT,PLT 370 10^3/uL (150-400); RED BLOOD CELL COUNT 4.18 x10^6/uL (4.50-6.00); WHITE BLOOD CELL COUNT,WBC 7.8 10^3/uL (4.0-11.0)
[2025-07-15 13:39] LABS: APPEARANCE,URINE CLEAR (CLEAR); GLUCOSE,URINE NEGATIVE (NEGATIVE); OCCULT BLOOD,URINE NEGATIVE (NEGATIVE)
[2025-07-15 13:49] LABS: ALANINE AMINOTRANSFERASE,ALT 34.0 U/L (12-78); ASPARTATE AMNIOTRANSFERASE,AST 22.0 U/L (15-37); BILIRUBIN TOTAL 0.3 mg/dL (0.0-1.0); BLOOD UREA NITROGEN,BUN 15.0 mg/dL (7-18); CARBON DIOXIDE,CO2 25.0 mmol/L (21-32); CHLORIDE,CL 97.0 mEq/L (98-106); CREATININE 0.9 mg/dL (0.7-1.3); EST CRCL DRUG DOSING (CG) 78.65 mL/min; GLUCOSE RANDOM 111.0 mg/dL (75-99); POTASSIUM,K 4.5 mEq/L (3.5-5.0); PROTEIN TOTAL,TP 6.5 g/dL (6.4-8.2); SODIUM,NA 130.0 mEq/L (136-145)
[2025-07-15 13:50] LABS: ESTIMATED GFR 87.0 mL/min (>=60)
[2025-07-15 14:09] LABS: CORONAVIRUS COVID-19 NAA NEGATIVE (NEGATIVE); INFLUENZA A NAA NEGATIVE (NEGATIVE); INFLUENZA B NAA NEGATIVE (NEGATIVE); RESPIRATORY SYNCYTIAL VIR NAA NEGATIVE (NEGATIVE)
== END 2025-07-15 15:10 | disposition home or self-care (01) ==
LOC: CC.ED 12:39
DX: E87.1 Hypo-osmolality and hyponatremia (principal); J98.9 Respiratory disorder, unspecified; I10 Essential (primary) hypertension; E03.9 Hypothyroidism, unspecified; Z88.0 Allergy status to penicillin; Z88.8 Allergy status to other drugs, medicaments and biological substances; Z79.890 Hormone replacement therapy; Z79.899 Other long term (current) drug therapy
CPT/HCPCS: 36415; 71046; 80053; 81003; 84484; 85025; 86140; 87637; 93005; 93010; 96360; 99284; 99284-25; A9270-GY; J7030

== ENCOUNTER 2025-07-18 13:43 | Emergency (ER) | payer OTHER ==
[2025-07-18 14:18] LABS: BASOPHILS ABSOLUTE AUTO 0.04 10^3/uL (0.00-0.50); BASOPHILS PERCENT AUTO 0.5 % (0-1); EOSINOPHILS ABSOLUTE AUTO 0.25 10^3/uL (0.00-1.50); EOSINOPHILS PERCENT AUTO 3.4 % (0-6); IMMATURE GRAN ABSOLUTE AUTO 0.04 10^3/uL (0.00-0.49); IMMATURE GRAN PERCENT AUTO 0.5 % (0.0-4.9); LYMPHOCYTES ABSOLUTE AUTO 1.54 10^3/uL (0.60-5.00); LYMPHOCYTES PERCENT AUTO 20.7 % (24-44); MONOCYTES ABSOLUTE AUTO 0.61 10^3/uL (0.00-1.50); MONOCYTES PERCENT AUTO 8.2 % (0-10); NEUTROPHILS ABSOLUTE AUTO 4.97 x10^3/uL (1.80-8.00); NEUTROPHILS PERCENT AUTO 66.7 % (41-71); PLATELET COUNT,PLT 384 10^3/uL (150-400); RED BLOOD CELL COUNT 4.30 x10^6/uL (4.50-6.00); WHITE BLOOD CELL COUNT,WBC 7.5 10^3/uL (4.0-11.0)
[2025-07-18 14:32] LABS: ALANINE AMINOTRANSFERASE,ALT 23.0 U/L (12-78); ASPARTATE AMNIOTRANSFERASE,AST 14.0 U/L (15-37); BILIRUBIN TOTAL 0.4 mg/dL (0.0-1.0); BLOOD UREA NITROGEN,BUN 15.0 mg/dL (7-18); CARBON DIOXIDE,CO2 25.0 mmol/L (21-32); CHLORIDE,CL 96.0 mEq/L (98-106); CREATININE 0.9 mg/dL (0.7-1.3); EST CRCL DRUG DOSING (CG) 78.65 mL/min; GLUCOSE RANDOM 125.0 mg/dL (75-99); POTASSIUM,K 4.6 mEq/L (3.5-5.0); PROTEIN TOTAL,TP 6.7 g/dL (6.4-8.2); SODIUM,NA 131.0 mEq/L (136-145)
[2025-07-18 14:34] LABS: ESTIMATED GFR 87.0 mL/min (>=60)
[2025-07-18 15:05] LABS: APPEARANCE,URINE SLIGHTLY CLOUDY (CLEAR); GLUCOSE,URINE NEGATIVE (NEGATIVE); OCCULT BLOOD,URINE NEGATIVE (NEGATIVE)
== END 2025-07-18 15:58 | disposition home or self-care (01) ==
LOC: CC.ED 13:43
DX: I95.1 Orthostatic hypotension (principal); I10 Essential (primary) hypertension; E03.9 Hypothyroidism, unspecified; Z79.899 Other long term (current) drug therapy; Z79.890 Hormone replacement therapy; Z88.1 Allergy status to other antibiotic agents; Z88.8 Allergy status to other drugs, medicaments and biological substances
CPT/HCPCS: 70450; 71046; 80053; 81003; 83735; 84484; 85025; 93005; 93010; 99284; 99285

== ENCOUNTER 2025-07-28 13:09 | Emergency (ER) | payer OTHER ==
[2025-07-28 13:38] LABS: BASOPHILS ABSOLUTE AUTO 0.04 10^3/uL (0.00-0.50); BASOPHILS PERCENT AUTO 0.6 % (0-1); EOSINOPHILS ABSOLUTE AUTO 0.34 10^3/uL (0.00-1.50); EOSINOPHILS PERCENT AUTO 4.8 % (0-6); IMMATURE GRAN ABSOLUTE AUTO 0.02 10^3/uL (0.00-0.49); IMMATURE GRAN PERCENT AUTO 0.3 % (0.0-4.9); LYMPHOCYTES ABSOLUTE AUTO 2.83 10^3/uL (0.60-5.00); LYMPHOCYTES PERCENT AUTO 39.7 % (24-44); MONOCYTES ABSOLUTE AUTO 0.63 10^3/uL (0.00-1.50); MONOCYTES PERCENT AUTO 8.8 % (0-10); NEUTROPHILS ABSOLUTE AUTO 3.26 x10^3/uL (1.80-8.00); NEUTROPHILS PERCENT AUTO 45.8 % (41-71); PLATELET COUNT,PLT 268 10^3/uL (150-400); RED BLOOD CELL COUNT 4.69 x10^6/uL (4.50-6.00); WHITE BLOOD CELL COUNT,WBC 7.1 10^3/uL (4.0-11.0)
[2025-07-28 13:54] LABS: ALANINE AMINOTRANSFERASE,ALT 27 U/L (12-78); ASPARTATE AMNIOTRANSFERASE,AST 23 U/L (15-37); BILIRUBIN TOTAL 0.6 mg/dL (0.0-1.0); BLOOD UREA NITROGEN,BUN 17 mg/dL (7-18); CARBON DIOXIDE,CO2 28 mmol/L (21-32); CHLORIDE,CL 104 mEq/L (98-106); CREATININE 1.3 mg/dL (0.7-1.3); GLUCOSE RANDOM 133 mg/dL (75-99); POTASSIUM,K 3.6 mEq/L (3.5-5.0); PROTEIN TOTAL,TP 6.3 g/dL (6.4-8.2); SODIUM,NA 142 mEq/L (136-145)
[2025-07-28 13:55] LABS: ESTIMATED GFR 56 mL/min (>=60); ETHANOL BLOOD MEDICAL < 3 mg/dL (0-3)
[2025-07-28 14:56] LABS: APPEARANCE,URINE CLEAR (CLEAR); GLUCOSE,URINE NEGATIVE (NEGATIVE); OCCULT BLOOD,URINE NEGATIVE (NEGATIVE)
== END 2025-07-28 15:08 | disposition home or self-care (01) ==
LOC: CC.ED 13:09
DX: I95.1 Orthostatic hypotension (principal); I10 Essential (primary) hypertension; E03.9 Hypothyroidism, unspecified; Z88.8 Allergy status to other drugs, medicaments and biological substances; Z88.0 Allergy status to penicillin; Z79.899 Other long term (current) drug therapy
CPT/HCPCS: 36415; 80053; 80307; 81001; 83735; 84484; 85025; 93005; 93010; 96360; 99284; 99285; J7030

== ENCOUNTER 2025-08-25 02:03 | Emergency (ER) | payer OTHER | END 2025-08-25 03:37 | disposition home or self-care (01) | LOC: CC.ED 02:03 | DX: I10 Essential (primary) hypertension (principal); E03.9 Hypothyroidism, unspecified; Z88.0 Allergy status to penicillin; Z88.8 Allergy status to other drugs, medicaments and biological substances; Z79.899 Other long term (current) drug therapy; Z79.890 Hormone replacement therapy | CPT/HCPCS: 99284 ==